=== PATIENT | female | born 1950 | race Hispanic/Latino ===

== ENCOUNTER 2017-01-31 07:27 | Day surgery (SDC) | payer MEDICARE, OTHER ==
[2017-01-31] MEDS ORDERED: SUBLIMAZE IV ONE (08:14)
[2017-01-31 08:18] LABS: Basophils % (Auto) 0.9 % (0.0-1.8); Eosinophils % (Auto) 1.7 % (0.0-4.3); Hematocrit 41.8 % (30.3-42.9); Hemoglobin 13.8 gm/dl (10.1-14.3); Mean Corpuscular HGB Conc 33 % (30-34); Mean Corpuscular Hemoglobin 28 pg (28-32); Mean Corpuscular Volume 84 fl (79-97); Platelet Count 254 K/mm3 (140-440); Red Blood Count 4.97 M/mm3 (3.65-5.03); Red Cell Distribution Width 13.9 % (13.2-15.2); White Blood Count 6.8 K/mm3 (4.5-11.0)
[2017-01-31 08:19] VITALS: BP 152/64
[2017-01-31 08:29] LABS: INR 0.91 (0.87-1.13); Partial Thromboplastin Time 28.1 Sec. (24.2-36.6)
[2017-01-31] MEDS ORDERED: VERSED IV ONE (10:00)
== END 2017-01-31 10:00 | disposition home or self-care (01) ==
LOC: CATHLABREC 07:27 → EDSTATUS 08:30 → CATHLABREC 10:00
PROVIDERS: ATTEND Specialist
DX: Z53.8 Procedure and treatment not carried out for other reasons (principal); R91.8 Other nonspecific abnormal finding of lung field; Z79.01 Long term (current) use of anticoagulants
CPT/HCPCS: 36415; 85025; 85610; 85730

== ENCOUNTER 2017-02-04 10:03 | Day surgery (SDC) | payer MEDICARE, OTHER ==
[~2017-02-04 10:03] MED LIST: XYLOCAINE MPF 2% ONE
[2017-02-04] MEDS ORDERED: HURRICAINE ONE 20% TOPICAL SPRAY MM (10:26)
[2017-02-04] MEDS ORDERED: XYLOCAINE 1% 20 mL ONE (10:26)
[2017-02-04] MEDS ORDERED: LIDOCAINE VISCOUS 2% ONE (10:27)
[2017-02-04] MEDS ORDERED: ADRENALIN ONE (10:27)
[2017-02-04] MEDS ORDERED: NACL 0.9% 1000 ML 1,000 ML IV SCH ×2 (11:00)
--- NOTE | 2017-02-04 11:41 | Anesthesia Consultation ---
Anesthesia Consult and Med Hx Date of service: 02/04/17 - Airway Anesthetic Teeth Evaluation: Poor (missing some teeth, none loose) ROM Head & Neck: Adequate Mental/Hyoid Distance: Adequate Mallampati Class: Class II Intubation Access Assessment: Probably Good - Pulmonary Exam CTA: Yes - Cardiac Exam Cardiac Exam: RRR - Pre-Operative Health Status ASA Pre-Surgery Classification: ASA3 Proposed Anesthetic Plan: MAC - Pulmonary Hx Smoking: Yes (1 ppdx 36 yrs, quit 10 yr) COPD: Yes Hx Sleep Apnea: No - Cardiovascular System Hx Hypertension: No Hx Heart Attack/AMI: No - Central Nervous System Hx Seizures: No CVA: No Hx Psychiatric Problems: No - Gastrointestinal Hx Gastroesophageal Reflux Disease: No - Endocrine Hx 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
--- NOTE | 2017-02-04 11:42 | Anesthesia Day of Surgery ---
Anesthesia Day of Surgery - Day of Surgery Patient Examined: Yes Patient H&P Reviewed: Yes Patient is NPO: Yes
[2017-02-04] MEDS ORDERED: VERSED ONE (11:45)
[2017-02-04] MEDS ORDERED: SUBLIMAZE ONE (11:46)
[2017-02-04] MEDS ORDERED: DIPRIVAN 10 MG/ML IV ONE ×2 (11:46)
--- NOTE | 2017-02-04 13:42 | XRay Report ---
AP CHEST: HISTORY: Right upper lobe mass AP view of the chest demonstrates a normal mediastinal and cardiac contour with clear lungs and normal bony and soft tissue structures. IMPRESSION: Unremarkable AP chest. The subpleural mass in the right upper lobe seen on outline CT chest is not appreciated on AP chest.
[2017-02-04 14:54] VITALS: BP 156/66
--- NOTE | 2017-02-04 16:28 | Post Anesthesia Evaluation ---
- Post Anesthesia Evaluation Patient Participated: Yes Airway Patent: Yes Stable Respiratory Function: Yes Temp > 96.8F: Yes Pain Manageable: Yes Adequeate Hydration: Yes Anesthesia Complications: No
--- NOTE | 2017-02-11 01:11 | Operative Report ---
PROCEDURE: Bronchoscopy. INDICATION: Lung mass. DESCRIPTION OF PROCEDURE: After informed consent, procedure was performed. Via the mouth, endoscope was introduced. Evaluation of the nares was done with some bleeding noted on the left, unable to pass cotton swabs through nares. Via the mouth, endoscope was introduced. No upper airway lesions were noted. Vocal cords were within normal limits. Abduction and adduction of vocal cords noted. No endotracheal lesions noted. On the left, there were no lesions noted endobronchially. On the right, there was a polypoid lesion noted at the opening of the right upper lobe and narrowing noted in the right upper lobe. Bleeding was noted from this narrowed area. Washing, brushing, and biopsies were done. During the procedure, the patient had intermittent episodes of desaturation with improvement with jaw positioning. The patient after first biopsy and ____ biopsy had a significant decrease in ____. Jaw positioning was done with some improvement of the patient. Saturation remained in the mid 80s, and the scope was withdrawn after the first biopsy. Specimen was sent for analysis. Biopsy specimen was sent to pathology. Washing specimen was sent for C and S and cytology brushing specimen sent for cytology. See nurse's note in reference to the medications received during the procedure. Also, this was noted in the anesthesia note. The patient tolerated the procedure well. Post-procedure chest x-ray shows no evidence of pneumothorax. I spoke to the patient's friend at the end of the procedure in reference to the procedure and the possibility of having to redo procedure. Episodes of desaturation also discussed with the patient and with the patient's friend. Follow up as scheduled. JOB# [id number] DARIUS/BUDDY
== END 2017-02-04 10:04 | disposition home or self-care (01) ==
LOC: GIO 10:03
PROVIDERS: ATTEND Specialist
DX: R91.1 Solitary pulmonary nodule (principal); J44.9 Chronic obstructive pulmonary disease, unspecified; E78.5 Hyperlipidemia, unspecified; E66.9 Obesity, unspecified; Z68.38 Body mass index [BMI] 38.0-38.9, adult; Z98.51 Tubal ligation status; Z79.899 Other long term (current) drug therapy; Z90.5 Acquired absence of kidney; Z87.891 Personal history of nicotine dependence; Z85.53 Personal history of malignant neoplasm of renal pelvis; Z88.5 Allergy status to narcotic agent
CPT/HCPCS: 31623; 31625; 71010; 87116; 88104; 88112; 88305; J0171; J2250; J2704; J3010; J7030

== ENCOUNTER 2017-02-11 12:37 | Day surgery (SDC) | payer MEDICARE, OTHER ==
[2017-02-11] MEDS ORDERED: NACL 0.9% 1000 ML 1,000 ML IV SCH (13:00)
[2017-02-11] MEDS ORDERED: XYLOCAINE 1% 20 mL ONE (13:05)
[2017-02-11] MEDS ORDERED: LIDOCAINE VISCOUS 2% ONE (13:06)
[2017-02-11] MEDS ORDERED: WATER FOR IRRIG STERILE IR ONE (13:07)
[2017-02-11] MEDS ORDERED: ADRENALIN ONE (13:07)
[2017-02-11] MEDS ORDERED: HURRICAINE ONE 20% TOPICAL SPRAY MM (13:08)
--- NOTE | 2017-02-11 13:45 | Anesthesia Consultation ---
Anesthesia Consult and Med Hx Date of service: 02/11/17 - Airway Anesthetic Teeth Evaluation: Poor ROM Head & Neck: Adequate Mental/Hyoid Distance: Adequate Mallampati Class: Class II Intubation Access Assessment: Probably Good - Pulmonary Exam CTA: Yes - Cardiac Exam Cardiac Exam: RRR - Pre-Operative Health Status ASA Pre-Surgery Classification: ASA3 - Pulmonary Hx Smoking: Yes (1 ppdx 35 yrs, quit 10 yr) COPD: Yes Hx Sleep Apnea: No - Cardiovascular System Hx Hypertension: No Hx Heart Attack/AMI: No - Central Nervous System Hx Seizures: No CVA: No Hx Psychiatric Problems: No - Gastrointestinal Hx Gastroesophageal Reflux Disease: No - Endocrine Hx 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
--- NOTE | 2017-02-11 13:45 | Anesthesia Day of Surgery ---
Anesthesia Day of Surgery - Day of Surgery Patient Examined: Yes Patient H&P Reviewed: Yes Patient is NPO: Yes
[2017-02-11] MEDS ORDERED: PEPCID IV NR (14:00)
[2017-02-11] MEDS ORDERED: VERSED ONE (14:10)
[2017-02-11] MEDS ORDERED: DIPRIVAN 10 MG/ML IV ONE ×2 (14:10)
[2017-02-11] MEDS ORDERED: XYLOCAINE 1% 20 mL INFILTRATI ONE (14:20)
--- NOTE | 2017-02-11 15:19 | XRay Report ---
AP CHEST: HISTORY: Right upper lobe mass, recent bronchoscopy Soft tissue density masslike lesion in the right suprahilar region has increased slightly since 02/04/17. The remainder of the lungs are clear. No pneumothorax or pleural fluid. Heart size is within normal limits. IMPRESSION: Right upper lobe mass/opacity. No acute process.
[2017-02-11 15:22] VITALS: BP 143/65
--- NOTE | 2017-02-11 16:04 | Post Anesthesia Evaluation ---
- Post Anesthesia Evaluation Patient Participated: Yes Airway Patent: Yes Stable Respiratory Function: Yes Temp > 96.8F: Yes Pain Manageable: Yes Adequeate Hydration: Yes Anesthesia Complications: No
--- NOTE | 2017-02-12 01:47 | Operative Report ---
PROCEDURE: Bronchoscopy. INDICATION: Right side lung mass. DESCRIPTION OF PROCEDURE: With informed consent obtained, procedure was performed. Via the mouth, endoscope was introduced. No upper airway lesions were noted. Vocal cords were within normal limits. No endotracheal lesions were noted. Left lung was examined, no endobronchial lesions were noted. Examination of the right lower and middle lobe, no endobronchial lesions were noted. In the right upper lobe, there was narrowing noted. Brushings, biopsy, and washings were done of this area. The patient had minimal bleeding during the procedure. The patient did have some episodes of desaturations during the procedure with bag valve mask used during one of these episodes and also reposition of the patient's neck used during other episodes. The patient tolerated the procedure well, was awake at the end of the procedure. See the anaesthetist's note in reference to the medications given and vital signs during the procedure. SPECIMEN: Right upper lobe washing was sent for C and S. Right upper lobe washing was sent for cytology. Right upper lobe brushing was sent for cytology. Right upper lobe biopsy was sent for pathology. Post-procedure x-ray is pending. JOB# [id number] DARIUS/BUDDY
== END 2017-02-11 12:38 | disposition home or self-care (01) ==
LOC: GIO 12:37
PROVIDERS: ATTEND Specialist
DX: C34.11 Malignant neoplasm of upper lobe, right bronchus or lung (principal); J44.9 Chronic obstructive pulmonary disease, unspecified; E78.5 Hyperlipidemia, unspecified; E66.9 Obesity, unspecified; Z68.38 Body mass index [BMI] 38.0-38.9, adult; Z85.528 Personal history of other malignant neoplasm of kidney; Z98.51 Tubal ligation status; Z90.5 Acquired absence of kidney; Z79.899 Other long term (current) drug therapy; Z87.891 Personal history of nicotine dependence; Z88.5 Allergy status to narcotic agent; Z88.8 Allergy status to other drugs, medicaments and biological substances
CPT/HCPCS: 31622; 31623; 31625; 71010; 87116; 88104; 88112; 88305; 88341; 88342; J2250; J2704; J7030; J0171

== ENCOUNTER 2017-03-06 11:57 | Outpatient (CLI) | payer MEDICARE ==
--- NOTE | 2017-03-07 08:41 | PET Report ---
PET SB TO MT INITIAL: HISTORY: Right hilar mass, lung mass, history of renal cancer. TECHNIQUE: 12.7 millicuries F-18 FDG was administered intravenously. Noncontrast CT images and PET images were obtained from the skull base to the proximal thighs. Fused images were reviewed on a workstation. The patient's blood glucose level measured 81. COMPARISON: CT chest abdomen pelvis with contrast dated 09/22/14. FINDINGS: BRAIN: physiologic FDG uptake in the imaged brain. NECK: There are 2 mildly enlarged right jugular lymph nodes measuring 2.4 cm and 2.1 cm. Both lymph nodes demonstrate a max SUV of 4.4. MEDIASTINUM: There are multiple coalescent lymph nodes in the right paratracheal chain and right hilar chain which measure up to 5.2 x 4.7 cm in axial plane on image 74. Max SUV of these coalescent lymph nodes measures 12.0. A 2.1 cm lymph node is noted in the anterior mediastinum with Max SUV measuring 3.7. LUNGS: A pleural-based mass in the medial right apex of the right lung measures 3.2 x 2.5 cm. No additional pulmonary nodule or mass. No underlying parenchymal lung disease is appreciated.. PLEURA/PERICARDIUM: physiologic FDG uptake. HEPATOBILIARY: physiologic FDG uptake. Mean liver SUV measures 3.8. PANCREAS: physiologic FDG uptake. SPLEEN: physiologic FDG uptake. ADRENAL GLANDS: physiologic FDG uptake. KIDNEYS/RENAL COLLECTING SYSTEMS: physiologic FDG uptake. Stable left nephrectomy changes. BOWEL/MESENTERY: physiologic FDG uptake. PELVIC VISCERA: physiologic FDG uptake. ABDOMINAL/PELVIC LYMPH NODES: physiologic FDG uptake. MUSCULOSKELETAL: physiologic FDG uptake. IMPRESSION: Hypermetabolic pleural based mass in the medial right upper lobe and multiple hypermetabolic lymph nodes in the right jugular chain and mediastinum as outlined above.
== END 2017-03-06 11:58 | disposition home or self-care (01) ==
LOC: PET 11:57
PROVIDERS: ATTEND Specialist
DX: C34.11 Malignant neoplasm of upper lobe, right bronchus or lung (principal); R59.9 Enlarged lymph nodes, unspecified; Z79.899 Other long term (current) drug therapy; Z87.891 Personal history of nicotine dependence; Z85.53 Personal history of malignant neoplasm of renal pelvis; Z90.5 Acquired absence of kidney
CPT/HCPCS: 78815; 82962; A9552